=== PATIENT | female | born 1955 | race Caucasian/White ===

== ENCOUNTER 2017-02-17 17:45 | Emergency (ER) | payer OTHER ==
[~2017-02-17] VITALS: Ht 165.1 cm; Wt 72.6 kg
[~2017-02-17 17:45] MED LIST: ALBUTEROL INHAL17 GM IH; AMBIEN 10 MG TA10 MG PO; ASACOL400 MG PO; BENTYL10 MG PO; CYMBALTA30 MG PO; FLEXERIL PO; HCTZ PO; HYDROCODON-ACE1 EAC7 PO; LEXAPRO 10 MG T10 MG PO; LIPITOR40 MG PO; MELOXICAM7.5 MG PO; MOBIC15 MG PO; NEURONTIN 300300 M1 PO; NEURONTIN600 MG PO; PERCOCET 10-321 EACH PO; POTASSIUM20 PO; PROCTOFOAM-HC F10 GM RC; VITAMIN D1000 UNI1 PO; VOLTAREN GEL 1100 G1 TOP; [UNRECOGNIZED DRUG - OTHER]
[2017-02-17] MEDS ORDERED: BENTYL 20 MG TA20 M1 PO (18:21)
[2017-02-17] MEDS ORDERED: LEXAPRO20 MG PO (18:21)
== END 2017-02-17 18:23 | disposition home or self-care (01) ==
LOC: ER 17:45
DX: S16.1XXA Strain of muscle, fascia and tendon at neck level, initial encounter (principal); M79.7 Fibromyalgia; Z88.5 Allergy status to narcotic agent; Z88.2 Allergy status to sulfonamides; Z88.8 Allergy status to other drugs, medicaments and biological substances; V49.40XA Driver injured in collision with unspecified motor vehicles in traffic accident, initial encounter; Y93.I9 Activity, other involving external motion; Y92.410 Unspecified street and highway as the place of occurrence of the external cause; Y99.9 Unspecified external cause status